=== PATIENT | female | born 1970 | race Native Hawaiian/Other Pacific Islander ===

== ENCOUNTER 2019-02-07 20:38 | Outpatient (CLI) | payer OTHER | END 2019-02-07 21:03 | disposition short-term general hospital (02) | LOC: AMB 20:38 | DX: R07.89 Other chest pain (principal) | CPT/HCPCS: A0425; A0427 ==

== ENCOUNTER 2019-10-30 14:45 | Emergency (ER) | payer OTHER ==
[~2019-10-30] VITALS: Ht 165.1 cm; Wt 106.6 kg
[2019-10-30] MEDS ORDERED: PRINIVIL10 MG PO (15:49)
[2019-10-30] MEDS ORDERED: LEVO0.117 PO (15:49)
[2019-10-30 16:04] LABS: POTASSIUM 3.3 mmol/L (3.6-5.2)
[2019-10-30 16:13] LABS: PLATELET COUNT 187 K/uL (152-353)
[2019-10-30 17:18] VITALS: TEMP 99.4
[2019-10-30 17:22] VITALS: BP 142/100
== END 2019-10-30 17:24 | disposition home or self-care (01) ==
LOC: ED 15:03
PROVIDERS: Emergency Medicine
DX: I10 Essential (primary) hypertension (principal)
CPT/HCPCS: 80053; 85027; 93005; 99283

== ENCOUNTER 2020-01-07 13:49 | Emergency (ER) | payer OTHER ==
[~2020-01-07] VITALS: Ht 165.1 cm; Wt 106.6 kg
[~2020-01-07 13:49] MED LIST: LEVO0.117 PO; PRINIVIL10 MG PO
[2020-01-07 13:56] VITALS: TEMP 97.5
[2020-01-07 14:44] LABS: PLATELET COUNT 182 K/uL (152-353)
[2020-01-07 14:49] LABS: POTASSIUM 3.9 mmol/L (3.6-5.2); SODIUM 135 mmol/L (136-145)
[2020-01-07 16:07] VITALS: BP 158/99
== END 2020-01-07 16:49 | disposition home or self-care (01) ==
LOC: ED 13:49
PROVIDERS: Family Medicine
DX: R07.89 Other chest pain (principal); F41.8 Other specified anxiety disorders
CPT/HCPCS: 80053; 81000; 82550; 82728; 84484; 85027; 85379; 93005; 99283

== ENCOUNTER 2020-01-31 07:12 | Emergency (ER) | payer OTHER ==
[~2020-01-31] VITALS: Ht 165.1 cm; Wt 93.4 kg
[2020-01-31 07:23] VITALS: TEMP 98.6
[2020-01-31 08:31] LABS: PLATELET COUNT 180 K/uL (152-353)
[2020-01-31 08:41] LABS: POTASSIUM 4.2 mmol/L (3.6-5.2); SODIUM 136 mmol/L (136-145)
[2020-01-31 08:56] VITALS: BP 124/73
== END 2020-01-31 08:59 | disposition home or self-care (01) ==
LOC: ED 07:12
DX: R07.89 Other chest pain (principal)
CPT/HCPCS: 36415; 80053; 83735; 84484; 85027; 93005; 99283